=== PATIENT | female | born 1970 | race Caucasian/White ===

== ENCOUNTER → 2017-08-17 | Outpatient (CLI) | payer BC ==
[~2017-08-17] MED LIST: ACETAMINOPHEN-1 EAC1 PO; BACTRIM DS TAB1 EACH PO; CIPRO500 M1 PO; CIPRO500 MG PO; FLAGYL500 MG PO; GINKGO BILOBA30 MG; GINKGO BILOBA30 MG PO; HAIR FORMULA T1 EACH PO; HYDROCODONE-AP1 EAC6 PO; IBUPROFEN 600600 M1 PO; LORTAB 5-500 T1 EAC1 PO; MULTIVITAMINS; PERCOCET 5-3251 EACH PO; PHENAZOPYRIDIN200 M2 PO; PRILOSEC 20 MG20 MG PO; UNICOMPLEX M TA1 TA1 PO
== END ==
LOC: M.CT 06:55
DX: N28.1 Cyst of kidney, acquired (principal); K42.9 Umbilical hernia without obstruction or gangrene; K76.89 Other specified diseases of liver; K59.00 Constipation, unspecified

== ENCOUNTER 2017-09-01 07:00 | Observation (INO) | payer BC ==
[~2017-09-01] VITALS: Ht 162.6 cm; Wt 88.0 kg
[~2017-09-01 07:00] MED LIST changes: -HYDROCODONE-AP1 EAC6 PO
[2017-09-01 12:30] VITALS: BP 122/83
[2017-09-01 13:44] LABS: MAGNESIUM 1.8 mg/dL (1.8-2.4); PHOSPHORUS* 3.3 mg/dL (2.5-4.9)
[2017-09-01 15:46] VITALS: BP 125/81
--- NOTE | 2017-09-01 16:25 | NUR ---
PATIENT ADMITTED AFTER HERNIA REPAIR SURGERY ON FLOOR AT 1200. A&OX4, ON 2L O2 VIA NC, ON FOR 24 HOURS. UP WITH ASSISTX1, PATIENT HAS NOT GOTTEN UP AT THIS TIME. HAVING SEVERE PAIN IN ABD, LAPROSCOPIC SITES X9 SECURE GLUE IN PLACE. PILLOW ON ABD FOR SPLINTING PURPOSES. LAXATIVES GIVEN FOR BOWELS, NO RESULTS YET. ADMISSION COMPLETED AND DOCUMENTED. NO OTHER CONCERNS AT THIS TIME. APPROPRIATE AND COOPORATIVE WITH CARE.
[2017-09-01 21:00] VITALS: BP 126/83
[2017-09-02 00:14] VITALS: BP 111/67
[2017-09-02 04:25] VITALS: BP 122/73
[2017-09-02 04:52] LABS: HEMATOCRIT 38.8 % (37.0-47.0); HEMOGLOBIN 13.2 gm/dL (12.0-15.0); MCH 30.7 pg (26.0-34.0); MCHC 33.9 g/dL (28.0-37.0); MCV 90.4 fL (80.0-100.0); MPV 8.8 fl. (7.2-11.1); RBC 4.29 mil/uL (4.20-5.00); RDW-CV 12.6 % (10.5-14.5); WBC 13.1 thou/uL (4.0-11.0)
[2017-09-02 05:12] LABS: CALCIUM 8.7 mg/dL (8.5-10.1); CREATININE 0.6 mg/dL (0.6-1.3); POTASSIUM 4.2 mmol/L (3.5-5.1)
--- NOTE | 2017-09-02 06:50 | NUR ---
PATIENT HAS SLEPT OFF AND ON DURING THE NIGHT BUT RESTLESS AT TIMES. PAIN MEDICATION GIVEN AND CHARTED. VSS ON 2L 02 VIA NASAL CANNULA. PATIENT IS UP WITH ASSIST X 1 TO THE BATHROOM. IV IN LEFT HAND-SL. PATIENT INSTRUCTED TO USE CALL LIGHT WHEN NEEDING ASSISTANCE. HOURLY ROUNDS MADE. WILL CONTINUE WITH PLAN OF CARE AND NURSING TO MONITOR.
[2017-09-02 07:15] VITALS: BP 126/76
[2017-09-02 10:59] VITALS: BP 126/76
[2017-09-02] MEDS ORDERED: HYDROCODONE-AP1 EAC6 PO (11:08)
--- NOTE | 2017-09-02 14:23 | NUR ---
ASSUMED CARE OF PATIENT AFTER MORNING REPORT. ALERT AND ORIENTED X4. ASSESSMENT COMPLETED AND CHARTED. VSS ON ROOM AIR. NO COMPLAINTS OF NAUSEA OR SOA THIS SHIFT. PAIN HAS BEEN MANAGED WITH ORAL MEDICATION. PATIENTS DIET ADVANCED FROM CLEAR LIQUIDS TO REGULAR AND TOLERATED WELL. PATIENT CLEARED FOR DISCHARGED BY DR HAN. PATIENT DISCHARGED WITH HER SPOUSE AT 1425, ALL PERSONAL BELONGINGS, PRESCRIPTION AND DISCHARGE INFORMATION SENT WITH PATIENT UPON DISCHARGE.
--- NOTE | 2017-09-03 15:58 | OP ---
[address] [address] OPERATIVE REPORT Name: LYNDSEY HOWARD Room: [address] Johan Shields#: [id number] Admission: 09/01/17 Attend Phys: Kimberly Khan MD Discharge: 09/02/17 Date of : 70 Report #: [id number] THIS REPORT FOR: //name// CC: Kimberly Roche DICTATED BY: Isabelle Villarreal DO DATE OF SERVICE: 09/01/2017 PREOPERATIVE DIAGNOSIS: Ventral hernia times 2. POSTOPERATIVE DIAGNOSIS: Ventral hernia times 2. SURGEON: Isabelle Villarreal DO, PGY-5 SUPERVISING SURGEON: Kimberly Khan MD CARE CLINICIAN: Livia Vaughn, PGY-3. PROCEDURE: Laparoscopic ventral hernia repair times 2, midline hernia repair with mesh and small right upper quadrant ventral hernia with primary repair. ANESTHESIA: General. ESTIMATED BLOOD LOSS: 25 mL. SPECIMENS: Hernia sac. COMPLICATIONS: None. COMMENTS: placement of Ventralight ST 11 x 4.4 cm round mesh over the midline defect. OPERATIVE DETAILS: After obtaining proper informed consent, the patient was brought to the operating room and laid supine on the operating table. She was given preoperative antibiotics and sedated and intubated under the benefit of general anesthesia. Abdomen was prepped and draped in the usual sterile fashion and time-out was performed. A 5-mm trocar was used with dloHaitiview in the left upper quadrant to enter the abdomen and abdomen was insufflated under direct visualization. Once the abdomen was insufflated, an additional 5-mm trocar was placed in the left lateral abdomen and 12-mm trocar in the left lower quadrant, again under direct visualization. The midline hernia defect was identified. Contents had reduced spontaneously upon insufflation. There was a small right upper quadrant adhesion and as this was taken down, was identified to be a small 5 mm trocar site hernia from previous surgery. [place] [id number] OPERATIVE REPORT Name: LEELYNDSEY J Room: [address] Johan Shields#: [id number] Admission: 09/01/17 Attend Phys: Kimberly Khan MD Discharge: 09/02/17 Date of : 70 Report #: [id number] was then dissected free from the fascial edges in the midline defect and defect was measured approximately 7 x 6 cm and incisions were made and 2 transfascial 0 Vicryl sutures were used to reapproximate the defect as the abdominal pressure was decreased to 10 mmHg. Transfascial sutures were then placed in the 11.[address] mesh and these were passed with a Onesimo-Aditi device in 4 points surrounding the hernia defect. These were secured and remaining edges of mesh were secured with a SecureStrap laparoscopic tacker with good placement. The hernia sac was then brought out through left lower quadrant incision. A 0 Vicryl suture was placed in the fascia of the left lower quadrant trocar with good approximation. The abdomen was desufflated and trocars were removed with no evidence of bleeding. Incisions of the trocar sites were closed with 4-0 Monocryl and transfascial sites were secured with skin glue. Local infiltration of 0.5% Marcaine was injected around all incision sites, totaling 50 mL. All counts were correct at the end of the case, drapes were removed and the patient was awoken, extubated, and brought to PACU in good condition for further recovery. Dr. Kimberly Khan was present and scrubbed for the entire the procedure. <ELECTRONICALLY SIGNED> By: Kimberly Khan MD 09/03/17 1558 [id number] Rosy Khan MD /nt
== END 2017-09-02 14:25 | disposition home or self-care (01) ==
LOC: M.SUR 07:00 → M.ORTHSURG 11:30 → M.TBA 11:30 → M.ORTHSURG 12:11
PROVIDERS: ADMIT Surgery
DX: K43.9 Ventral hernia without obstruction or gangrene (principal); R11.0 Nausea; E66.9 Obesity, unspecified; Z90.710 Acquired absence of both cervix and uterus; Z90.49 Acquired absence of other specified parts of digestive tract